=== PATIENT | female | born 1950 | race African-American/Black ===

== ENCOUNTER → 2016-11-12 | Outpatient (CLI) | payer BC ==
[2016-07-05 14:58] VITALS: BP 167/82
[~2016-11-12] MED LIST: AMLO10TA2 PO; DOXA4TAB3 PO; FURO40TA4 PO; GABA-586 PO; GLYB5TAB3 PO; METF500T4 PO; METO-269 PO; MONT10TA9 PO; OLME40TA PO; OMEP20CA9 PO; SIMV40TA3 PO; SITA100T PO
--- NOTE | 2016-11-13 09:30 | RAD ---
Left lower extremity venous Doppler ultrasound exam HISTORY: Left leg pain and swelling COMPARISON: Negative exam 09/24/2010 FINDINGS: Multiple grayscale and color images and spectral analysis waveform images were acquired of the left lower extremity veins to evaluate for the presence of DVT. Normal compression, color-flow, and augmentation is demonstrated from the left common femoral to the popliteal veins. There is normal phasicity. There is normal color flow of the proximal profunda femoris and greater saphenous veins. There is normal color flow in segments of calf veins. Impression: 1. There is no evidence of deep venous thrombosis from the left common femoral to popliteal veins.
== END | disposition home or self-care (01) ==
LOC: US 16:20
PROVIDERS: ATTEND Internal Medicine
DX: M79.605 Pain in left leg (principal)
CPT/HCPCS: 93971

== ENCOUNTER → 2017-01-11 | Outpatient (CLI) | payer MEDICARE ==
[2016-07-05 14:58] VITALS: BP 167/82
--- NOTE | 2017-01-11 11:39 | CARD ---
APPROVED REPORT EXAM: Two-dimensional and M-mode echocardiogram with Doppler and color Doppler. Other Information Quality : Average Rhythm : NSR INDICATION Cardiac Disease: CAD Surgery/Intervention CABG: Date: 03/2011 2D DIMENSIONS RVDd2.9 (2.9-3.5cm)Left Atrium(2D)3.9 (1.6-4.0cm) IVSd1.1 (0.7-1.1cm)Aortic Root(2D)2.8 (2.0-3.7cm) LVDd5.3 (3.9-5.9cm)LVOT Diameter2.2 (1.8-2.4cm) PWd1.1 (0.7-1.1cm)LVDs2.9 (2.5-4.0cm) FS (%) 34.6 %SV103.1 ml LVEF(%)65.5 (>50%) Aortic Valve AoV Peak Kali.141.8cm/sAoV VTI30.9cm AO Peak GR.8.0mmHgLVOT Peak Kali.102.7cm/s LVOT VTI 26.57cmAO Mean GR.4mmHg FAYE (VMAX)2.74mt1SII (VTI)3.27cm2 Mitral Valve MV E Zsvnkejs869.2cm/sMV DECEL JZJC217iu MV A Ouxiqtaw90.7cm/sMV E Mean Gr.2mmHg MV LLL25zcT/A Ratio1.5 MV A Bfllwtfc253ckDAA (PHT)3.66cm2 TDI E/Lateral E'8.2E/Medial E'20.7 Pulmonary Valve PV Peak Ekzhkcun01.3cm/sPV Peak Grad.3mmHg RVOT VTI20.6cm Tricuspid Valve TR P. Suwwgizk593xu/sRAP IAJFCPEG0hcYl TR Peak Gr.32vhRyWKMX98wkDl Pulmonary Vein S1 Oxgmtqek27.0cm/sD2 Jswadcch55.8cm/s LEFT VENTRICLE The left ventricle is normal size. There is normal left ventricular wall thickness. Left ventricle sy stolic function is normal. The Ejection Fraction is 60-65%. There is normal LV segmental wall motion. The left ventricular diastolic function and filling is normal for age. RIGHT VENTRICLE The right ventricle is normal size. The right ventricular systolic function is normal. ATRIA The left atrium size is normal. The right atrium size is normal. The interatrial septum is intact wit h no evidence for an atrial septal defect or patent foramen ovale as noted on 2-D or Doppler imaging. AORTIC VALVE The aortic valve is normal in structure and function. The aortic valve is trileaflet. Doppler and Col or Flow revealed no significant aortic regurgitation. There is no significant aortic valvular stenosi s. MITRAL VALVE The mitral valve is normal in structure and function. There is no mitral valve stenosis. Doppler and Color Flow revealed mild mitral regurgitation. TRICUSPID VALVE The tricuspid valve is normal in structure and function. Doppler and Color Flow revealed mild tricusp id regurgitation. The PA pressure was estimated at 38 mmHg. There is no tricuspid valve stenosis. PULMONIC VALVE The pulmonic valve is not well visualized. Doppler and Color Flow revealed trace pulmonic valvular re gurgitation. There is no pulmonic valvular stenosis. GREAT VESSELS The aortic root is normal in size. Normal pulmonary venous flow (Doppler). The IVC is normal in size and collapses >50% with inspiration. PERICARDIAL EFFUSION There is no evidence of significant pericardial effusion. Critical Notification Critical Value: No <Conclusion> The left ventricle is normal size. Left ventricle systolic function is normal. The Ejection Fraction is 60-65%. There is no significant aortic valvular stenosis. Doppler and Color Flow revealed no significant aortic regurgitation. Doppler and Color Flow revealed mild mitral regurgitation. Doppler and Color Flow revealed mild tricuspid regurgitation. The PA pressure was estimated at 38 mmHg.
== END | disposition home or self-care (01) ==
LOC: ECHO 07:09
PROVIDERS: ATTEND Internal Medicine Cardiovascular Disease
DX: I25.709 Atherosclerosis of coronary artery bypass graft(s), unspecified, with unspecified angina pectoris (principal); I10 Essential (primary) hypertension; Z87.448 Personal history of other diseases of urinary system; E11.9 Type 2 diabetes mellitus without complications; Z79.4 Long term (current) use of insulin
CPT/HCPCS: 93306

== ENCOUNTER → 2017-03-09 | Outpatient (CLI) | payer MEDICARE ==
[2016-07-05 14:58] VITALS: BP 167/82
--- NOTE | 2017-03-09 13:12 | RAD ---
DATE: 03/09/2017 EXAM: DIGITAL SCREEN BILAT W/CAD HISTORY: Routine screening COMPARISON: 12/18/2015 This study was interpreted with the benefit of Computerized Aided Detection (CAD). The breast parenchyma shows scattered fibroglandular densities. Breast parenchyma level B. FINDINGS: There is an unchanged smooth lymph node type density projected over the axillary tail region of the right breast. No new or enlarging breast densities are seen. Benign type calcifications are present. No suspicious microcalcifications have developed. IMPRESSION: Stable mammograms without evidence of malignancy. BI-RADS CATEGORY: 2 BENIGN FINDING(S) RECOMMENDED FOLLOW-UP: 12M 12 MONTH FOLLOW-UP PQRS compliance statement: Patient information was entered into a reminder system with a target due date for the next mammogram. Mammography is a sensitive method for finding small breast cancers, but it does not detect them all and is not a substitute for careful clinical examination. A negative mammogram does not negate a clinically suspicious finding and should not result in delay in biopsying a clinically suspicious abnormality. "Our facility is accredited by the [employer] Mammography Program."
== END | disposition home or self-care (01) ==
LOC: MAMMO 08:01
PROVIDERS: ATTEND Internal Medicine
DX: Z12.31 Encounter for screening mammogram for malignant neoplasm of breast (principal)
CPT/HCPCS: G0202; 77067

== ENCOUNTER → 2017-06-22 | Outpatient (CLI) | payer MEDICARE, MEDICAID ==
[2016-07-05 14:58] VITALS: BP 167/82
[~2017-06-22] MED LIST changes: -OLME40TA PO; +OLME40TA12 PO
--- NOTE | 2017-06-22 13:41 | KCIC ---
Examination: DEXA scan HISTORY: History of postmenopausal COMPARISON: None available FINDINGS: The bone mineral density in the lumbar spine is 1.429 g/sq cm with a T score of 3.5 and a Z score of 4.5. Bone mineral density in the left hip is 1.001 g/sq cm with a T score of 0.5 and a T score of 0.8 IMPRESSION: According to world congress diagnostic guidelines, the bone mineral density is normal. Electronically signed by: Denis Wheeler MD (06/22/2017 1:37 PM) [email or web address]
== END | disposition home or self-care (01) ==
LOC: KCIC DEXA 10:50
PROVIDERS: ATTEND Nurse Practitioner
DX: Z78.0 Asymptomatic menopausal state (principal)
CPT/HCPCS: 77080

== ENCOUNTER → 2017-12-27 | Day surgery (SDC) | payer MEDICARE, MEDICAID ==
[~2017-12-27] MED LIST changes: -AMLO10TA2 PO; -DOXA4TAB3 PO; -FURO40TA4 PO; -GABA-586 PO; -GLYB5TAB3 PO; +IV RINGERS,LACTATED 1000ML 1,000 ML IV; +LIDOCAINE 1% PF 2 ML VIAL. ID; -METF500T4 PO; -METO-269 PO; -MONT10TA9 PO; +MORPHINE SULFATE 4 MG/ML DISP.SYRIN. IV; -OLME40TA12 PO; -OMEP20CA9 PO; +ONDANSETRON PF 4 MG/2 ML VIAL. IV; +PROCHLORPERAZINE 10 MG/2 ML VIAL. IV; +PROPOFOL 40 ML IV; -SIMV40TA3 PO; -SITA100T PO; +fentaNYL PF VIAL 100 MCG/2 ML VIAL IV
[2017-12-27] MEDS: IV NORMAL SALINE 1000ML BAG 1,000 ML IV (09:01)
[2017-12-27 09:06] LABS: POC GLUCOSE 222 mg/dL (70-99)
== END | disposition home or self-care (01) ==
LOC: ENDOS 08:25
DX: D12.4 Benign neoplasm of descending colon (principal); E11.22 Type 2 diabetes mellitus with diabetic chronic kidney disease; I12.9 Hypertensive chronic kidney disease with stage 1 through stage 4 chronic kidney disease, or unspecified chronic kidney disease; N18.4 Chronic kidney disease, stage 4 (severe); I25.10 Atherosclerotic heart disease of native coronary artery without angina pectoris; K21.9 Gastro-esophageal reflux disease without esophagitis; E78.5 Hyperlipidemia, unspecified; E11.319 Type 2 diabetes mellitus with unspecified diabetic retinopathy without macular edema; E11.649 Type 2 diabetes mellitus with hypoglycemia without coma; Z90.49 Acquired absence of other specified parts of digestive tract; Z95.1 Presence of aortocoronary bypass graft; Z79.82 Long term (current) use of aspirin; Z79.899 Other long term (current) drug therapy; Z79.4 Long term (current) use of insulin
CPT/HCPCS: 45385; 82962; 88305; J2704

== ENCOUNTER → 2018-01-06 | Outpatient (CLI) | payer MEDICARE, MEDICAID | END | disposition home or self-care (01) | LOC: ECHO 07:35 | DX: I08.1 Rheumatic disorders of both mitral and tricuspid valves (principal); I25.709 Atherosclerosis of coronary artery bypass graft(s), unspecified, with unspecified angina pectoris | CPT/HCPCS: 93306 ==

== ENCOUNTER → 2019-01-03 | Outpatient (CLI) | payer MEDICARE ==
[2017-12-27 10:10] VITALS: BP 138/70
[~2019-01-03] MED LIST changes: +AMLO10TA8 PO; +ASPI-630 PO; +CETI10TA16 PO; +DOXA4TAB3 PO; +FERR325T14 PO; +FLUT9.9S NS; +FOLI0.8T21 PO; +FURO40TA4 PO; +GABA300C18 PO; +GLYB5TAB3 PO; +HYDR-2869 PO; +INSU100V13 SQ; -IV RINGERS,LACTATED 1000ML 1,000 ML IV; -LIDOCAINE 1% PF 2 ML VIAL. ID; +METF500T16 PO; +METO-269 PO; +MONT10TA9 PO; -MORPHINE SULFATE 4 MG/ML DISP.SYRIN. IV; +OLME40TA12 PO; +OMEP20CA10 PO; -ONDANSETRON PF 4 MG/2 ML VIAL. IV; -PROCHLORPERAZINE 10 MG/2 ML VIAL. IV; -PROPOFOL 40 ML IV; +SIMV40TA3 PO; +SITA100T PO; +SPIR25TA5 PO; -fentaNYL PF VIAL 100 MCG/2 ML VIAL IV
--- NOTE | 2019-01-05 09:56 | RAD ---
DATE: 01/03/2019 EXAM: MAMMO YOMAIRA SCREENING BILATERAL HISTORY: Routine screening COMPARISON: 03/09/2017 This study was interpreted with the benefit of Computerized Aided Detection (CAD). Breast Density: SCATTERED The breast parenchyma shows scattered fibroglandular densities. Breast parenchyma level B. FINDINGS: 2-D and 3-D tomosynthesis imaging was performed in CC and MLO projections. There are stable small smooth nodules in the lateral aspect of the right breast. There is a 11 mm nodule in the inferolateral aspect of the left breast which appears more prominent than on the previous study. There is a suggestion of a hilar lucency suggests that this is an intramammary lymph noted, as best seen on left CC tomosynthesis images #9. No other new or enlarging breast densities seen. Benign type calcifications are present. No suspicious microcalcifications have developed. IMPRESSION: Enlarging small left inferolateral breast nodule as described above. Sonographic evaluation is suggested. BI-RADS CATEGORY: 0 INCOMPLETE: NEEDS ADDITIONAL IMAGING EVALUATION AND/OR PRIOR MAMMOGRAMS FOR COMPARISON. RECOMMENDED FOLLOW-UP: ADD ADDITIONAL IMAGING PQRS compliance statement: Patient information was entered into a reminder system with a target due date for the next mammogram. Mammography is a sensitive method for finding small breast cancers, but it does not detect them all and is not a substitute for careful clinical examination. A negative mammogram does not negate a clinically suspicious finding and should not result in delay in biopsying a clinically suspicious abnormality. "Our facility is accredited by the [employer] Mammography Program."
== END | disposition home or self-care (01) ==
LOC: MAMMO 12:46
PROVIDERS: ATTEND Internal Medicine
DX: Z12.31 Encounter for screening mammogram for malignant neoplasm of breast (principal); N63.20 Unspecified lump in the left breast, unspecified quadrant; N63.10 Unspecified lump in the right breast, unspecified quadrant
CPT/HCPCS: 77063; 77067

== ENCOUNTER → 2019-01-10 | Outpatient (CLI) | payer MEDICARE ==
[2017-12-27 10:10] VITALS: BP 138/70
--- NOTE | 2019-01-10 16:21 | RAD ---
Examination: BREAST LEFT History: abnormal mammo Comparison/Correlation: 12/18/2015, 03/09/2017, 01/03/2019 screening mammographic exams Findings: Limited left breast ultrasound examination at the 3:00 region 12 cm from nipple was performed. There is a 1.3 cm x 1.2 cm x 0.5 cm tall well-circumscribed structure with a hyperechoic central component. This has appearance most compatible with a lymph node. Impression: BI-RADS Category 3-probably benign. A left breast structure most compatible with a lymph node is present. This finding is more evident on 01/03/2019 as compared to 03/09/2017. It is not seen on older prior mammographic exams. Six-month follow-up by mammography is recommended as result to assess stability. Ultrasound may be needed at that time. Electronically signed by: Shaheen Joseph MD (01/10/2019 4:18 PM) [facility] [place]
== END | disposition home or self-care (01) ==
LOC: US 14:08
PROVIDERS: ATTEND Internal Medicine
DX: R92.8 Other abnormal and inconclusive findings on diagnostic imaging of breast (principal)
CPT/HCPCS: 76641

== ENCOUNTER → 2019-02-09 | Outpatient (CLI) | payer MEDICARE ==
[2017-12-27 10:10] VITALS: BP 138/70
--- NOTE | 2019-02-09 14:03 | CARD ---
MR#: [id number] Date of Study: 02/09/2019 Ordering Physician: SALOME DALTON, Referring Physician: SALOME DALTON Tech: Nini Junior RDCS APPROVED REPORT EXAM: Two-dimensional and M-mode echocardiogram with Doppler and color Doppler. Other Information Quality : Technically LimitedHR: 55bpm Rhythm : BradycardiaTechnically limited study due to body habitus. INDICATION CAD 2D DIMENSIONS RVDd3.1 (2.9-3.5cm)Left Atrium(2D)3.5 (1.6-4.0cm) IVSd1.0 (0.7-1.1cm)Aortic Root(2D)3.2 (2.0-3.7cm) LVDd4.6 (3.9-5.9cm)LVOT Diameter2.2 (1.8-2.4cm) PWd1.0 (0.7-1.1cm)LVDs3.2 (2.5-4.0cm) FS (%) 31.5 %SV58.6 ml LVEF(%)59.4 (>50%) M-Mode DIMENSIONS Left Atrium(MM)4.06 (2.5-4.0cm)Aortic Root3.21 (2.2-3.7cm) Aortic Valve AoV Peak Kali.149.3cm/sAoV VTI32.2cm AO Peak GR.8.9mmHgLVOT Peak Kali.101.0cm/s AO Mean GR.5mmHgAVA (VMAX)2.65cm2 FAYE (VTI)2.60cm2 Mitral Valve MV E Wwylzccz589.1cm/sMV DECEL ISHQ694cc MV A Whfbqpej80.4cm/sE/A Ratio1.7 MV A Byqbhoru046gx Pulmonary Valve PV Peak Ldikzhro297.8cm/s Tricuspid Valve TR P. Ceqctjsc405en/sRAP KCPVSSRK9zvFv TR Peak Gr.87iiLzFUCW86taFh Pulmonary Vein S1 Ykgejrse37.9cm/sD2 Yejefwya79.9cm/s PVa lymzjysk06chzr LEFT VENTRICLE The left ventricle is normal size. There is normal left ventricular wall thickness. The left ventricu lar systolic function is normal. The Ejection Fraction is 60%. There is normal LV segmental wall ashlee on. Transmitral Doppler flow pattern is Grade II-pseudonormal filling dynamics. RIGHT VENTRICLE The right ventricle is normal size. There is normal right ventricular wall thickness. The right ventr icular systolic function is normal. ATRIA The left atrium size is normal. The right atrium size is normal. The interatrial septum is intact wit h no evidence for an atrial septal defect or patent foramen ovale as noted on 2-D or Doppler imaging. AORTIC VALVE The aortic valve is normal in structure and function. The aortic valve is trileaflet. Doppler and Col or Flow revealed no significant aortic regurgitation. There is no significant aortic valvular stenosi s. MITRAL VALVE The mitral valve is normal in structure and function. There is no evidence of mitral valve prolapse. There is no mitral valve stenosis. Doppler and Color-flow revealed mild mitral regurgitation. TRICUSPID VALVE The tricuspid valve is normal in structure and function. Doppler and Color Flow revealed trace tricus pid regurgitation. There is mild pulmonary hypertension. The PA pressure was estimated at 41 mmHg. Th ere is no tricuspid valve prolapse or vegetation. There is no tricuspid valve stenosis. PULMONIC VALVE The pulmonary valve is normal in structure and function. Doppler and Color Flow revealed trace to mil d pulmonic valvular regurgitation. There is no pulmonic valvular stenosis. GREAT VESSELS The aortic root is normal in size. The ascending aorta is normal in size. The IVC is normal in size a nd collapses >50% with inspiration. PERICARDIAL EFFUSION There is no evidence of significant pericardial effusion. Critical Notification Critical Value: No <Conclusion> The left ventricular systolic function is normal. The Ejection Fraction is 60%. There is normal LV segmental wall motion. Mild mitral regurgitation. Trace tricuspid regurgitation. The PA pressure was estimated at 41 mmHg. There is no evidence of significant pericardial effusion. Signed by : Salome Dalton, Electronically Approved : 02/09/2019 14:02:26
== END | disposition home or self-care (01) ==
LOC: ECHO 12:40
PROVIDERS: ATTEND Internal Medicine Cardiovascular Disease
DX: I08.8 Other rheumatic multiple valve diseases (principal); I27.20 Pulmonary hypertension, unspecified; R00.1 Bradycardia, unspecified; I25.709 Atherosclerosis of coronary artery bypass graft(s), unspecified, with unspecified angina pectoris
CPT/HCPCS: 93306

== ENCOUNTER → 2019-11-27 | Outpatient (CLI) | payer MEDICARE ==
[2017-12-27 10:10] VITALS: BP 138/70
[~2019-11-27] MED LIST changes: +MONT10TA49 PO; -MONT10TA9 PO; -OMEP20CA10 PO; +OMEP20CA16 PO; +SIMV40TA18 PO; -SIMV40TA3 PO
--- NOTE | 2019-11-27 10:44 | RAD ---
Indication: Six-month follow-up probably benign left breast nodule. She is due for screening. COMPARISON: Bilateral mammograms of 03/21/2008, 07/26/2013, 01/03/2019 and limited left breast ultrasound of 01/10/2019. TECHNIQUE: Bilateral CC and MLO views were obtained with 2-D and 3-D technique and reviewed with computer-aided detection. FINDINGS: Breasts are almost entirely fatty replaced. Middle third upper outer quadrant symmetric bilateral solitary circumscribed oval masses are present measuring approximately 1 cm in size and are consistent with benign intramammary lymph nodes that are not significantly changed over time allowing for variability in positioning between exams. No developing mass, architectural distortion or suspicious calcifications. IMPRESSION: Benign findings bilaterally. No evidence of malignancy. Recommend return to routine screening next due in one year. BI-RADS Category 2 Benign Patient entered into a reminder system with target due date for next mammogram. BI-RADS 2 -- benign findings
--- NOTE | 2019-11-27 15:56 | KCIC ---
Bone densitometry study: Date: 11/27/2019. Indication: Estrogen deficiency. Diabetes.. Procedure: DEXA study. Findings: The bone mineral density from L1 through L4 is 1.402 grams/cm squared with T-score 3.2. The bone mineral density in the left hip involving the neck of the left femur is 0.978 grams per cm squared with a T-score of 0.3. As compared with the baseline examination of 06/22/2017, bone mineral density in the lumbar spine has decreased from 1.436 g/sq cm, (T score 3.5), representing a 2.3 percent decrease in bone mineral density. Bone mineral density in the left hip has decreased from 1.001 g/sq cm, (T score 0.5) representing a 2.3 percent decrease in bone mineral density. Impression: Normal bone mineral density in the spine and left hip with slight interval decrease from 2017. Electronically signed by: Amol Brewer MD (11/27/2019 3:54 PM) [id number]
== END | disposition home or self-care (01) ==
LOC: KCIC DEXA 09:37
PROVIDERS: ATTEND Internal Medicine
DX: R92.8 Other abnormal and inconclusive findings on diagnostic imaging of breast (principal); E11.9 Type 2 diabetes mellitus without complications
CPT/HCPCS: 77066; 77080; G0279; 77062

== ENCOUNTER → 2020-04-15 | Outpatient (CLI) | payer MEDICARE ==
[2017-12-27 10:10] VITALS: BP 138/70
--- NOTE | 2020-04-15 13:40 | CARD ---
MR#: [id number] Date of Study: 04/15/2020 Ordering Physician: SALOME BERUMEN, Referring Physician: SALOME BERUMEN, Tech: Cici Hernandez RDCS APPROVED REPORT EXAM: Two-dimensional and M-mode echocardiogram with Doppler and color Doppler. Other Information Quality : Good INDICATION Cardiac Disease: CAD 2D DIMENSIONS RVDd3.4 (2.9-3.5cm)Left Atrium(2D)3.7 (1.6-4.0cm) IVSd1.0 (0.7-1.1cm)Aortic Root(2D)2.8 (2.0-3.7cm) LVDd5.6 (3.9-5.9cm)LVOT Diameter2.3 (1.8-2.4cm) PWd1.0 (0.7-1.1cm)LVDs2.7 (2.5-4.0cm) FS (%) 30.0 %SV126.2 ml LVEF(%)60.0 (>50%) Aortic Valve AoV Peak Kali.139.3cm/sAoV VTI34.8cm AO Peak GR.7.8mmHgLVOT Peak Kali.101.8cm/s LVOT VTI 26.68cmAO Mean GR.4mmHg FAYE (VMAX)3.75kb1BGV (VTI)3.31cm2 Mitral Valve MV E Xffffuog633.2cm/sMV DECEL ROGE033cx MV A Mgpbrjll39.0cm/sMV IPI87zh E/A Ratio1.3MVA (PHT)4.99cm2 TDI E/Lateral E'39.1E/Medial E'35.9 Tricuspid Valve TR P. Lmmrhbnw857ix/sRAP GGEHJXQX1cjYn TR Peak Gr.15bjOeTTEH51amGa Pulmonary Vein S1 Xbnxscla58.4cm/sD2 Gnpitpgq68.3cm/s LEFT VENTRICLE The left ventricle is normal size. There is normal left ventricular wall thickness. The left ventricu lar systolic function is normal. The Ejection Fraction is 55-60%. There is normal LV segmental wall m otion. RIGHT VENTRICLE The right ventricle is normal size. The right ventricular systolic function is normal. ATRIA The left atrium size is normal. The right atrium size is normal. The interatrial septum is intact wit h no evidence for an atrial septal defect or patent foramen ovale as noted on 2-D or Doppler imaging. AORTIC VALVE The aortic valve is calcified but opens well. Doppler and Color Flow revealed no significant aortic r egurgitation. There is no significant aortic valvular stenosis. MITRAL VALVE The mitral valve is calcified but opens well. Mitral annular calcification is mild. There is no evide nce of mitral valve prolapse. There is no mitral valve stenosis. Doppler and Color-flow revealed mild mitral regurgitation. TRICUSPID VALVE The tricuspid valve is normal in structure and function. Doppler and Color Flow revealed trace tricus pid regurgitation. There is mild pulmonary hypertension. The PA pressure was estimated at 33 mmHg. Th ere is no tricuspid valve stenosis. PULMONIC VALVE The pulmonic valve is not well visualized. Doppler and Color Flow revealed mild pulmonic valvular reg urgitation. There is no pulmonic valvular stenosis. GREAT VESSELS The aortic root is normal in size. The ascending aorta is normal in size. The IVC is normal in size a nd collapses >50% with inspiration. PERICARDIAL EFFUSION There is no evidence of significant pericardial effusion. Critical Notification Critical Value: No <Conclusion> The left ventricular systolic function is normal. The Ejection Fraction is 55-60%. There is normal LV segmental wall motion. Mild mitral regurgitation. Trace tricuspid regurgitation. The PA pressure was estimated at 33 mmHg. There is no evidence of significant pericardial effusion. Signed by : Salome Berumen, Electronically Approved : 04/15/2020 13:40:10
--- NOTE | 2020-04-16 11:27 | RAD ---
MR#: [id number] Date of Study: 04/15/2020 Ordering Physician: SALOME BERUMEN, Referring Physician: SALOME BERUMEN, Tech: Joel Anthony MBA, RDMS, RVT, RDCS, RTR APPROVED REPORT Patient Location: OUT-PATIENT Indications Uncontrolled HTN Renal Artery Doppler Right Renal Artery Left Renal Arter y Proximal 61.0/9.0 cm/secProximal 74.0/16.0 cm/sec Mid 77.0/16.0 cm/secMid 67.0/15.0 cm/sec Distal 126.0/18.0 cm/secDistal 66.0/15.0 cm/sec Renal/Aorta Ratio 1.06Renal/Aorta Ratio 0.62 Prox. Resistive Index 0.85Prox. Resistive Index 0.78 Mid Resistive Index 0.79Mid Resistive Index 0.78 Distal Resistive Index 0.86Distal Resistive Index 0.77 Rt. Segmental A. 50.0/11.0 cm/secLt. Segmental A. 59.0/14.0 cm/sec Renal Measurements RightLeft Kidney Kplpxj12.4 cm cmKidney Wyzzui60.3 cm cm Right Additional FindingsLeft Additional Findings Aortic Doppler VelocityWaveform Proximal Aorta 119.0 cm/sec Findings Grayscale images of the bilateral kidneys demonstrate renal cysts. The largest on the right side dacia sures approximately 2.2 cm and the largest on the left side measures approximately 4.5 cm. Spectral and color Doppler evaluation of the proximal, mid and distal renal arteries is grossly unrem arkable with normal velocities and no evidence of significant renal artery stenosis. Normal aortic v elocities are noted with mild diffuse aortic wall plaque noted. Critical Notification Critical Value: No <Conclusion> 1. No significant renal artery stenosis 2. Bilateral renal cysts, largest on the left measuring 4.5 cm. Consider full renal study in 6 m [facility] to ensure no significant changes. Signed by : Steven Gore, Electronically Approved : 04/16/2020 11:26:25
== END | disposition home or self-care (01) ==
LOC: ECHO 08:44
PROVIDERS: ATTEND Internal Medicine Cardiovascular Disease
DX: I08.8 Other rheumatic multiple valve diseases (principal); I25.709 Atherosclerosis of coronary artery bypass graft(s), unspecified, with unspecified angina pectoris; I10 Essential (primary) hypertension; I27.20 Pulmonary hypertension, unspecified; N28.1 Cyst of kidney, acquired
CPT/HCPCS: 76770; 93306

== ENCOUNTER → 2020-04-25 | Outpatient (CLI) | payer MEDICARE ==
[2017-12-27 10:10] VITALS: BP 138/70
[2020-04-25 13:38] LABS: HEMATOCRIT 29.2 % (36.0-47.0); HEMOGLOBIN 10.1 g/dL (12.0-15.5)
[2020-04-25 13:56] LABS: ALBUMIN 3.2 g/dL (3.4-5.0); CALCIUM 9.4 mg/dL (8.5-10.1); CREATININE 5.1 mg/dL (0.6-1.0); GFR 10.2; PHOSPHORUS 4.4 mg/dL (2.6-4.7); POTASSIUM 5.1 mmol/L (3.5-5.1)
[2020-04-25 14:05] LABS: CREATININE,RANDOM URINE 75.8 mg/dL (Not Establ.)
[2020-04-25 21:07] LABS: CALCIUM PTH 9.9 mg/dL (8.7-10.3); CREATININE PTH 4.94 mg/dL (0.57-1.00); PHOSPHORUS PTH 4.3 mg/dL (3.0-4.3); PTH INTACT 240 pg/mL (15-65)
[2020-04-25 22:09] LABS: CREAT RD UR 73.6 mg/dL (Not Estab.); MICROALB RD UR 1416.8 ug/mL (Not Estab.)
== END | disposition home or self-care (01) ==
LOC: LAB 12:56
PROVIDERS: ATTEND Internal Medicine Nephrology
DX: E83.52 Hypercalcemia (principal); N18.4 Chronic kidney disease, stage 4 (severe); D63.1 Anemia in chronic kidney disease; E83.41 Hypermagnesemia; R80.9 Proteinuria, unspecified
CPT/HCPCS: 36415; 80069; 82043; 82306; 82570; 83970; 84156; 85014; 85018

== ENCOUNTER 2020-04-28 17:56 | Emergency (ER) | payer MEDICARE ==
[~2020-04-28] VITALS: Ht 165.1 cm; Wt 104.5 kg
[2020-04-28 19:15] LABS: BASO % 1 % (0-3); EOS # 0.1 x10^3/uL (0.0-0.7); EOS % 2 % (0-3); HEMATOCRIT 31.4 % (36.0-47.0); HEMOGLOBIN 10.8 g/dL (12.0-15.5); LYMPH # 1.8 x10^3/uL (1.0-4.8); LYMPH % 27 % (24-48); MEAN CORPUSCULAR HEMOGLOBIN 32 pg (25-35); MEAN CORPUSCULAR HGB CONC 34 g/dL (31-37); MEAN CORPUSCULAR VOLUME 92 fL (79-100); MONO # 0.4 x10^3/uL (0.0-1.1); MONO % 6 % (0-9); NEUT # 4.5 x10^3/uL (1.8-7.7); NEUT % 66 % (31-73); PLATELET COUNT 229 x10^3/uL (140-400); RED BLOOD COUNT 3.41 x10^6/uL (3.50-5.40); RED CELL DISTRIBUTION WIDTH 14.3 % (11.5-14.5); WHITE BLOOD COUNT 6.8 x10^3/uL (4.0-11.0)
[2020-04-28 19:17] LABS: BILIRUBIN,URINE NEGATIVE (NEG); CLARITY,URINE CLEAR; COLOR,URINE YELLOW; NITRITE,URINE NEGATIVE (NEG); PH,URINE 6.5 (<5.0-8.0); PROTEIN,URINE >=300 mg/dL (NEG-TRACE); UROBILINOGEN,URINE 0.2 mg/dL (0.2 mg/dL)
[2020-04-28 19:26] LABS: CALCIUM 9.6 mg/dL (8.5-10.1); CREATININE 4.9 mg/dL (0.6-1.0); GFR 10.7; POTASSIUM 3.9 mmol/L (3.5-5.1)
[2020-04-28 19:31] LABS: ALBUMIN 3.5 g/dL (3.4-5.0); ALBUMIN/GLOBULIN RATIO 0.8 (1.0-1.7); MAGNESIUM 2.1 mg/dL (1.8-2.4); TOTAL BILIRUBIN 0.7 mg/dL (0.2-1.0); TOTAL PROTEIN 8.1 g/dL (6.4-8.2)
[2020-04-28 19:39] LABS: BACTERIA,URINE FEW /HPF (0-FEW); SQUAMOUS EPITHELIAL CELL,UR FEW /LPF
--- NOTE | 2020-04-28 19:52 | PHYS DOC ---
Past Medical History Past Medical History: Diabetes-Type II, High Cholesterol, Hypertension, Renal Disease, Other Additional Past Medical Histor: Seasonal Allergies. sickle cell trait Past Surgical History: Cholecystectomy, Coronary Bypass Surgery, Other Additional Past Surgical Histo: Bilateral cataracts,CABG x 4. Smoking Status: Never Smoker Alcohol Use: None Drug Use: None General Adult EDM: Chief Complaint: DIALYSIS PROBLEM HPI: HPI: Patient is a 69-year-old female with chronic kidney disease who presents tonight secondary to her creatinine being elevated. 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 She feels her normal self today. She denies any nausea or vomiting. She states she has been eating and drinking normally. She states she makes a lot of urine. She states they have discussed the idea of dialysis with her in the past. [] Review of Systems: Review of Systems: Constitutional: Denies fever or chills. [] Eyes: Denies change in visual acuity. [] HENT: Denies nasal congestion or sore throat. [] Respiratory: Denies cough or shortness of breath. [] Cardiovascular: Denies chest pain or edema. [] GI: Denies abdominal pain, nausea, vomiting, bloody stools or diarrhea. [] : Denies dysuria. [] Musculoskeletal: Denies back pain or joint pain. [] Integument: Denies rash. [] Neurologic: Denies headache, focal weakness or sensory changes. [] Endocrine: Denies polyuria or polydipsia. [] Lymphatic: Denies swollen glands. [] Psychiatric: Denies depression or anxiety. [] Heart Score: Risk Factors: Risk Factors: DM, Current or recent (<one month) smoker, HTN, HLP, family history of CAD, obesity. Risk Scores: Score 0 - 3: 2.5% MACE over next 6 weeks - Discharge Home Score 4 - 6: 20.3% MACE over next 6 weeks - Admit for Clinical Observation Score 7 - 10: 72.7% MACE over next 6 weeks - Early Invasive Strategies Allergies: Allergies: Allergies Coded Allergies Type Severity Reaction Last Updated Verified No Known Drug Allergies 12/27/17 No Physical Exam: PE: Constitutional: Well developed, well nourished, no acute distress, non-toxic appearance. [] HENT: Normocephalic, atraumatic, bilateral external ears normal, oropharynx moist, no oral exudates, nose normal. [] Eyes: PERRLA, EOMI, conjunctiva normal, no discharge. [] Neck: Normal range of motion, no tenderness, supple, no stridor. [] Cardiovascular:Heart rate regular rhythm, no murmur [] Lungs & Thorax: Bilateral breath sounds clear to auscultation [] Abdomen: Bowel sounds normal, soft, no tenderness, no masses, no pulsatile masses. [] Skin: Warm, dry, no erythema, no rash. [] Back: No tenderness, no CVA tenderness. [] Extremities: No tenderness, no cyanosis, no clubbing, ROM intact, no edema. [] Neurologic: Alert and oriented X 3, normal motor function, normal sensory function, no focal deficits noted. [] Psychologic: Affect normal, judgement normal, mood normal. [] Current Patient Data: Labs: Laboratory Tests Test 04/28/20 18:20 White Blood Count 6.8 x10^3/uL (4.0-11.0) Red Blood Count 3.41 x10^6/uL (3.50-5.40) L Hemoglobin 10.8 g/dL (12.0-15.5) L Hematocrit 31.4 % (36.0-47.0) L Mean Corpuscular Volume 92 fL (79-100) Mean Corpuscular Hemoglobin 32 pg (25-35) Mean Corpuscular Hemoglobin Concent 34 g/dL (31-37) Red Cell Distribution Width 14.3 % (11.5-14.5) Platelet Count 229 x10^3/uL (140-400) Neutrophils (%) (Auto) 66 % (31-73) Lymphocytes (%) (Auto) 27 % (24-48) Monocytes (%) (Auto) 6 % (0-9) Eosinophils (%) (Auto) 2 % (0-3) Basophils (%) (Auto) 1 % (0-3) Neutrophils # (Auto) 4.5 x10^3/uL (1.8-7.7) Lymphocytes # (Auto) 1.8 x10^3/uL (1.0-4.8) Monocytes # (Auto) 0.4 x10^3/uL (0.0-1.1) Eosinophils # (Auto) 0.1 x10^3/uL (0.0-0.7) Basophils # (Auto) 0.0 x10^3/uL (0.0-0.2) Urine Collection Type Unknown Urine Color Yellow Urine Clarity Clear Urine pH 6.5 (<5.0-8.0) Urine Specific [place] 1.010 (1.000-1.030) Urine Protein >=300 mg/dL (NEG-TRACE) Urine Glucose (UA) Negative mg/dL (NEG) Urine Ketones (Stick) Negative mg/dL (NEG) Urine Blood Negative (NEG) Urine Nitrite Negative (NEG) Urine Bilirubin Negative (NEG) Urine Urobilinogen Dipstick 0.2 mg/dL (0.2 mg/dL) Urine Leukocyte Esterase Negative (NEG) Urine RBC 1-2 /HPF (0-2) Urine WBC 5-10 /HPF (0-4) Urine Squamous Epithelial Cells Few /LPF Urine Bacteria Few /HPF (0-FEW) Sodium Level 137 mmol/L (136-145) Potassium Level 3.9 mmol/L (3.5-5.1) Chloride Level 100 mmol/L (98-107) Carbon Dioxide Level 27 mmol/L (21-32) Anion Gap 10 (6-14) Blood Urea Nitrogen 58 mg/dL (7-20) H Creatinine 4.9 mg/dL (0.6-1.0) H Estimated GFR (Cockcroft-Gault) 10.7 BUN/Creatinine Ratio 12 (6-20) Glucose Level 262 mg/dL (70-99) H Calcium Level 9.6 mg/dL (8.5-10.1) Magnesium Level 2.1 mg/dL (1.8-2.4) Total Bilirubin 0.7 mg/dL (0.2-1.0) Aspartate Amino Transferase (AST) 15 U/L (15-37) Alanine Aminotransferase (ALT) 20 U/L (14-59) Alkaline Phosphatase 96 U/L (46-116) Total Protein 8.1 g/dL (6.4-8.2) Albumin 3.5 g/dL (3.4-5.0) Albumin/Globulin Ratio 0.8 (1.0-1.7) L Laboratory Tests 04/28/20 18:20 Laboratory Tests 04/28/20 18:20 Vital Signs: Vital Signs Date Time Temp Pulse Resp B/P (MAP) Pulse Ox O2 Delivery O2 Flow Rate FiO2 04/28/20 18:11 98.8 92 18 175/70 (105) 100 Room Air 98.8 EKG: EKG: [EKG: Normal sinus rhythm rate of [address]-T changes] Radiology/Procedures: Radiology/Procedures: [] Course & Med Decision Making: Course & Med Decision Making Pertinent Labs and Imaging studies reviewed. (See chart for details) [ED course: Evaluation reveals a 69-year-old female with progressive kidney disease. She has a skein bleacher. She is asymptomatic today. Her creatinine is elevated but appears only slightly more so than usual. She is making urine. I think she is safe to follow with her skein bleacher as an outpatient.] I spoke with Dr. Garvin who agreed with the disposition. He states he will speak with Dr. Ambriz tomorrow and have her arrange for outpatient follow-up. Dragon Disclaimer: Dragon Disclaimer: This electronic medical record was generated, in whole or in part, using a voice recognition dictation system. Departure Departure Impression: Primary Impression: Acute on chronic renal failure Qualified Codes: N17.9 - Acute kidney failure, unspecified; N18.4 - Chronic kidney disease, stage 4 (severe) Disposition: 01 HOME, SELF-CARE Condition: STABLE Referrals: SANDRA MONTEMAYOR MD (PCP) MENDOZA AMBRIZ MD Follow-up with your skein bleacher this week for recheck. Patient Instructions: Chronic Renal Insufficiency Additional Instructions: Return to the emergency department with any new or concerning symptoms Justicifation of Admission Dx: Justifications for Admission: Justification of Admission Dx: JONAH Kelly DO Apr 28, 2020 19:52
[2020-04-28 19:55] VITALS: BP 199/89
--- NOTE | 2020-04-29 03:01 | EKG ---
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
== END 2020-04-28 20:34 | disposition home or self-care (01) ==
LOC: ER 17:56
DX: E11.22 Type 2 diabetes mellitus with diabetic chronic kidney disease (principal); I12.9 Hypertensive chronic kidney disease with stage 1 through stage 4 chronic kidney disease, or unspecified chronic kidney disease; N18.4 Chronic kidney disease, stage 4 (severe); N17.9 Acute kidney failure, unspecified; E78.00 Pure hypercholesterolemia, unspecified; Z90.49 Acquired absence of other specified parts of digestive tract; Z95.1 Presence of aortocoronary bypass graft
CPT/HCPCS: 36415; 80053; 81001; 83735; 85025; 87086; 93005; 99284

== ENCOUNTER → 2020-05-05 | Outpatient (CLI) | payer MEDICARE ==
[2020-04-28 19:55] VITALS: BP 199/89
[~2020-05-05] MED LIST changes: +CHOL500051 PO; +METO-247 PO
[2020-05-05 11:31] LABS: CALCIUM 9.4 mg/dL (8.5-10.1); CREATININE 5.5 mg/dL (0.6-1.0); GFR 9.3; POTASSIUM 4.1 mmol/L (3.5-5.1)
== END | disposition home or self-care (01) ==
LOC: LAB 10:45
PROVIDERS: ATTEND Internal Medicine Nephrology
DX: N17.9 Acute kidney failure, unspecified (principal); E11.29 Type 2 diabetes mellitus with other diabetic kidney complication; E83.41 Hypermagnesemia; R53.83 Other fatigue; Z68.37 Body mass index [BMI] 37.0-37.9, adult
CPT/HCPCS: 36415; 80048; 86704; 86706; 86803; 87340

== ENCOUNTER → 2020-05-07 | Outpatient (CLI) | payer MEDICARE ==
[2020-04-28 19:55] VITALS: BP 199/89
--- NOTE | 2020-05-07 12:31 | RAD ---
CHEST AP ONLY 05/07/2020 12:00 AM INDICATION: CJD stage IV COMPARISON: None available TECHNIQUE: Portable frontal view of the chest is provided. FINDINGS: The cardiomediastinal silhouette is within normal limits. Lungs are clear. There are no significant pleural effusions. There is no pulmonary vascular congestion. No pneumothorax. Median sternotomy changes are present. No suspicious osseous abnormality. IMPRESSION: There is no acute cardiopulmonary process. Electronically signed by: Sanjuana Bustos MD (05/07/2020 12:28 PM) [id number]
== END | disposition home or self-care (01) ==
LOC: RAD 11:11
PROVIDERS: ATTEND Internal Medicine Nephrology
DX: N18.4 Chronic kidney disease, stage 4 (severe) (principal)
CPT/HCPCS: 71045

== ENCOUNTER 2020-05-09 08:25 | Outpatient (CLI) | payer MEDICARE ==
[2020-05-09] VITALS (8 sets, daily range): BP systolic 118–161; BP diastolic 57–72
[~2020-05-09] VITALS: Ht 165.1 cm; Wt 105.2 kg
[~2020-05-09 08:25] MED LIST changes: -CHOL500051 PO; -METO-247 PO
[2020-05-09 08:56] LABS: BASO # 0.1 x10^3/uL (0.0-0.2); BASO % 1 % (0-3); EOS # 0.2 x10^3/uL (0.0-0.7); EOS % 3 % (0-3); HEMATOCRIT 30.1 % (36.0-47.0); HEMOGLOBIN 10.2 g/dL (12.0-15.5); LYMPH # 1.6 x10^3/uL (1.0-4.8); LYMPH % 23 % (24-48); MEAN CORPUSCULAR HEMOGLOBIN 31 pg (25-35); MEAN CORPUSCULAR HGB CONC 34 g/dL (31-37); MEAN CORPUSCULAR VOLUME 92 fL (79-100); MONO # 0.4 x10^3/uL (0.0-1.1); MONO % 6 % (0-9); NEUT % 68 % (31-73); PLATELET COUNT 241 x10^3/uL (140-400); RED BLOOD COUNT 3.29 x10^6/uL (3.50-5.40); WHITE BLOOD COUNT 7.3 x10^3/uL (4.0-11.0)
[2020-05-09 09:04] LABS: PROTHROMBIN TIME PATIENT 11.2 SEC (11.7-14.0)
[2020-05-09] MEDS ORDERED: INSU100V13 SQ (09:06)
[2020-05-09] MEDS ORDERED: METO-247 PO (09:06)
[2020-05-09] MEDS ORDERED: CHOL500051 PO (09:06)
[2020-05-09] MEDS ORDERED: LIDOCAINE 1%/EPI 1:100,000 20 ML VIAL. ONE (09:33)
[2020-05-09] MEDS ORDERED: fentaNYL PF VIAL 100 MCG/2 ML VIAL IV ONE (10:00)
[2020-05-09] MEDS ORDERED: MIDAZOLAM HCL/PF 2 MG/2 ML VIAL. IV ONE (10:00)
[2020-05-09] MEDS ORDERED: LIDOCAINE 1%/EPI 1:100,000 20 ML VIAL. SQ ONE (10:00)
[2020-05-09] MEDS ORDERED: MIDAZOLAM HCL/PF 2 MG/2 ML VIAL. ONE (10:04)
[2020-05-09] MEDS ORDERED: fentaNYL PF VIAL 100 MCG/2 ML VIAL ONE (10:04)
--- NOTE | 2020-05-09 11:05 | PDOC ---
MODERATE SEDATION ASSESSMENT RISKS/ALTERNATIVES Risks/Alternatives Risks and alternatives of this type of sedation and procedure discussed with: RISK/ALTERNATIVES: Patient H & P ON CHART H & P H & P on chart and reviewed for co-morbid conditions and appropriate labs. H&P ON CHART: Yes STATUS PREG STATUS ASSESSED: Yes MEDS/ALLERGIES REVIEWED Meds/Allergies Reviewed Medications and Allergies including time and route of recently administered narcotics and sedatives. MEDS/ALLERGIES REVIEWED: Yes ASA RATING ASA RATING: II AIRWAY ASSESSMENT Airway Assessment Airway patency, oral function limitations, presence of caps, crowns, dentures, partials, and ability to extend neck assessed. AIRWAY ASSESSMENT: Yes MALLAMPATI SCORE MALLAMPATI SCORE: II PRE-SEDATION ASSESSMENT PRE-SEDATION ASSESSMENT: Yes ELIZABETH SUE MD May 09, 2020 11:05
--- NOTE | 2020-05-09 11:05 | PDOC ---
BRIEF OPERATIVE NOTE Pre-Op Diagnosis CRF Post-Op Diagnosis same Procedure Performed Tunnelled HD Catheter Surgeon Fab Anesthesia Type: Conscious Sedation Findings 23cm Palindrome with excellent manual flows Complications no immediate ELIZABETH SUE MD May 09, 2020 11:05
--- NOTE | 2020-05-09 13:06 | NUR ---
Discharge Note: MESHA GARCIA Discharge instructions and discharge home medications reviewed with Patient and daughter; and a copy given. All questions have been answered and understanding verbalized. The following instructions and handouts were given: Dialysis diet, Central line placement, Post moderate sedation. Discontinued lines and drains: Right wrist IV site dc'd and tip intact. Patient discharged to home with daughter via personal vehicle.
--- NOTE | 2020-05-09 14:02 | RAD ---
Procedure: Tunneled hemodialysis catheter placement Clinical Indication: Adult female with chronic renal failure requiring hemodialysis Sedation: Conscious sedation was administered for 23 minutes. The patient was monitored by a qualified independent observer throughout the time of sedation. Please refer to the medical record for exact doses of medications utilized to achieve moderate sedation. Antibiotics: Antibiotic was administered intravenously within 1 hour of the procedure start time. Fluoro Time: 0.2 minutes, images: 1 Contrast: None Sterility: All elements of maximal sterile barrier technique including the use of a cap, mask, sterile gown, sterile gloves, large sterile sheet, appropriate hand hygiene, and 2% chlorhexidine for cutaneous antisepsis (or acceptable alternative antiseptic per current guidelines) were followed for this procedure. Consent: The procedure was explained in its entirety to the patient or the patients designated public relations representative by a member of the treatment team, including a discussion of the risks, benefits and commonly accepted alternatives to the procedure, as well as the expected consequences of no therapy whatsoever. Discussion of the risks included, but was not limited to, those that are most frequent and those that are rare but possibly severe or life-threatening, as well as the possibility of unforeseen complications. Technique and Findings: Following informed consent, the patient was prepped and draped in the usual sterile fashion. Ultrasound interrogation of the right neck revealed patency and compressibility of the right internal jugular vein. A 21-gauge micropuncture was then used to gain access to this vein under ultrasound guidance. A hard copy ultrasound image was recorded. The needle was exchanged over a wire for a 4 [place] sheath which was used to guide an Amplatz wire into the IVC. The skin over the right anterior chest wall was copiously anesthetized with 1% Lidocaine plus Epinephrine and a small dermatotomy was made. A 23 cm palindrome tunneled hemodialysis catheter was then tunneled subcutaneously towards the neck dermatotomy and deployed through a large caliber peel-away sheath under fluoroscopic guidance such that the distal tip resided in the mid right atrium. Manual flow rates were assessed and found to be excellent. The catheter was then flushed, packed with Heparin, capped, and sutured to the skin. The neck dermatotomy was closed with Dermabond. Complications: No immediate Impression: 1. Tunneled hemodialysis catheter placement as described. This catheter demonstrates excellent manual flow rates and is suitable for use immediately.
== END 2020-05-09 13:10 | disposition home or self-care (01) ==
LOC: INTRAD 08:25
PROVIDERS: ATTEND Internal Medicine Nephrology
DX: I12.0 Hypertensive chronic kidney disease with stage 5 chronic kidney disease or end stage renal disease (principal); E11.22 Type 2 diabetes mellitus with diabetic chronic kidney disease; N18.6 End stage renal disease; Z79.84 Long term (current) use of oral hypoglycemic drugs; Z79.899 Other long term (current) drug therapy
CPT/HCPCS: 36415; 36558; 76937; 77001; 85025; 85610; 99152; 99153; C1750; C1769; C1892; J0690; J2250; J3010; J3490

== ENCOUNTER 2020-10-09 10:14 | Day surgery (SDC) | payer MEDICARE ==
--- NOTE | 2020-10-08 16:14 | PREOP HP ---
DATE OF SERVICE: 10/09/2020 CHIEF COMPLAINT AND HISTORY OF PRESENT ILLNESS: This patient is a 69-year-old female who is a 4, para 4, all have been full-term normal deliveries and she has had menopause at the age of 59. She is a patient of Dr. Dang Basilio and also she is waiting for a kidney transplant in future. She does have high blood pressure, diabetes, and a quadruple bypass surgery she has had in 2010. She is not on any big medications at this time except for insulin for diabetes and also she is on dialysis. She did have a Pap smear, which shows endometrial cells in the reading and the patient is scheduled at this time for a diagnostic D and C. ALLERGIES: None known. PAST MEDICAL HISTORY: Reveals she has had a gallbladder, cataract, as well as quadruple bypass surgery before. FAMILY HISTORY: She does have a family history, 2 brothers and 2 sisters. REVIEW OF SYSTEMS: Essentially as mentioned above. PHYSICAL EXAMINATION: VITAL SIGNS: Reveals she weighs about 230 pounds at this time. Blood pressure of 130/90. Vital signs stable. GENERAL: The patient is quite obese. She is walking with a cane at this time. ABDOMEN: Feels soft. PELVIC: Shows external genitalia being normal. Cervical os is closed. Uterus feels normal size, no adnexal masses are palpable. No vaginal bleeding noted at this time. Pap smear was done, which shows endometrial cells. IMPRESSION: Obesity, hypertension with diabetes, kidney dialysis patient, candidate for kidney transplant, postmenopausal syndrome. PLAN: Diagnostic D and C. RONNIE LANDRUM MD DR: TRUE/gigi JOB#: [id number] / [id number]
[~2020-10-09] VITALS: Ht 165.1 cm; Wt 103.9 kg
[~2020-10-09 10:14] MED LIST changes: +AMLO-187 PO; -AMLO10TA8 PO; +CHOL500051 PO; +DEXAMETHASONE SOD PHOS 4 MG/ML VIAL ONE; +HYDROmorphone 2 MG/ML VIAL IV PRN; +IV RINGERS,LACTATED 1000ML 1,000 ML IV SCH; +LIDOCAINE 1% PF 2 ML VIAL. ID PRN; +LIDOCAINE 2% PF 5 ML VIAL. ONE; +METO-247 PO; +MORPHINE SULFATE 2 MG/ML VIAL. IV PRN; +ONDANSETRON PF 4 MG/2 ML VIAL. IV PRN; +ONDANSETRON PF 4 MG/2 ML VIAL. ONE; +OXYTOCIN 10 UNIT/ML VIAL. ONE; +PROCHLORPERAZINE 10 MG/2 ML VIAL. IV PRN; +PROPOFOL 10 MG/ML (20ML) VIAL. IV ONE; +VIT1CAPS7 PO; +fentaNYL PF VIAL 100 MCG/2 ML VIAL IV PRN; +miSOPROStol 200 MCG TABLET. ONE
[2020-10-09] MEDS ORDERED: INSULIN LISPRO 100 UNIT/ML 3ML VIAL for OP,RR ONLY. SQ PRN (10:30)
[2020-10-09] MEDS ORDERED: IV NORMAL SALINE 1000ML BAG 1,000 ML IV ONE (11:15)
[2020-10-09] MEDS ORDERED: fentaNYL PF VIAL 100 MCG/2 ML VIAL ONE (11:22)
[2020-10-09 11:39] LABS: BASO # 0.1 x10^3/uL (0.0-0.2); BASO % 2 % (0-3); EOS # 0.1 x10^3/uL (0.0-0.7); EOS % 2 % (0-3); HEMATOCRIT 27.5 % (36.0-47.0); HEMOGLOBIN 9.2 g/dL (12.0-15.5); LYMPH # 1.3 x10^3/uL (1.0-4.8); LYMPH % 25 % (24-48); MEAN CORPUSCULAR HEMOGLOBIN 32 pg (25-35); MEAN CORPUSCULAR HGB CONC 34 g/dL (31-37); MEAN CORPUSCULAR VOLUME 95 fL (79-100); MONO # 0.4 x10^3/uL (0.0-1.1); MONO % 7 % (0-9); NEUT # 3.4 x10^3/uL (1.8-7.7); NEUT % 65 % (31-73); PLATELET COUNT 207 x10^3/uL (140-400); RED CELL DISTRIBUTION WIDTH 15.5 % (11.5-14.5); WHITE BLOOD COUNT 5.2 x10^3/uL (4.0-11.0)
[2020-10-09 11:44] LABS: CREATININE 4.7 mg/dL (0.6-1.0); GFR 11.2; POTASSIUM 3.8 mmol/L (3.5-5.1)
[2020-10-09] MEDS ORDERED: ONDANSETRON PF 4 MG/2 ML VIAL. ONE (12:22)
[2020-10-09] MEDS ORDERED: FAMOTIDINE 20 MG/2 ML VIAL ONE (12:22)
[2020-10-09] MEDS ORDERED: GLYCOPYRROLATE 1 MG/5 ML VIAL. ONE (12:22)
[2020-10-09] MEDS ORDERED: SEVOFLURANE 31 TO 60 MINUTES. IH ONE (12:49)
--- NOTE | 2020-10-09 12:55 | PDOC ---
GENERAL General: 69yrs old lady has Abnormal Pap Smear with Endometrial Cells. VITAL SIGNS Vital Signs/I&O: Vital Signs Date Time Temp Pulse Resp B/P (MAP) Pulse Ox O2 Delivery O2 Flow Rate FiO2 10/09/20 10:52 97.8 71 20 92 97.8 10/09/20 10:48 164/71 Room Air ALLERGIES Allergies: Allergies Coded Allergies Type Severity Reaction Last Updated Verified No Known Drug Allergies 10/09/20 No MEDS Medications: Current Medications Medications (Trade) Dose Ordered Sig/Flora Route PRN Reason Start Time Stop Time Status Last Admin Dose Admin Cefazolin Sodium/ Dextrose 50 ml @ 100 mls/hr 1X PREOP PRN IV PRIOR TO PROCEDURE 10/09/20 06:00 10/09/20 18:00 10/09/20 12:15 Sodium Chloride 1,000 ml @ 0 mls/hr 1X ONCE IV 10/09/20 11:15 10/09/20 11:16 DC 10/09/20 11:04 LAB Lab: Laboratory Tests Test 10/09/20 10:30 10/09/20 10:59 10/09/20 11:25 SARS-CoV-2 Antigen (Rapid) Negative (NEGATIVE) Glucose (Fingerstick) 121 mg/dL (70-99) H White Blood Count 5.2 x10^3/uL (4.0-11.0) Red Blood Count 2.90 x10^6/uL (3.50-5.40) L Hemoglobin 9.2 g/dL (12.0-15.5) L Hematocrit 27.5 % (36.0-47.0) L Mean Corpuscular Volume 95 fL (79-100) Mean Corpuscular Hemoglobin 32 pg (25-35) Mean Corpuscular Hemoglobin Concent 34 g/dL (31-37) Red Cell Distribution Width 15.5 % (11.5-14.5) H Platelet Count 207 x10^3/uL (140-400) Neutrophils (%) (Auto) 65 % (31-73) Lymphocytes (%) (Auto) 25 % (24-48) Monocytes (%) (Auto) 7 % (0-9) Eosinophils (%) (Auto) 2 % (0-3) Basophils (%) (Auto) 2 % (0-3) Neutrophils # (Auto) 3.4 x10^3/uL (1.8-7.7) Lymphocytes # (Auto) 1.3 x10^3/uL (1.0-4.8) Monocytes # (Auto) 0.4 x10^3/uL (0.0-1.1) Eosinophils # (Auto) 0.1 x10^3/uL (0.0-0.7) Basophils # (Auto) 0.1 x10^3/uL (0.0-0.2) Sodium Level 142 mmol/L (136-145) Potassium Level 3.8 mmol/L (3.5-5.1) Chloride Level 102 mmol/L (98-107) Carbon Dioxide Level 31 mmol/L (21-32) Anion Gap 9 (6-14) Blood Urea Nitrogen 26 mg/dL (7-20) H Creatinine 4.7 mg/dL (0.6-1.0) H Estimated GFR (Cockcroft-Gault) 11.2 Glucose Level 122 mg/dL (70-99) H Calcium Level 10.0 mg/dL (8.5-10.1) Laboratory Tests 10/09/20 11:25 Laboratory Tests 10/09/20 11:25 ASSESSMENT & PLAN A&P Under [facility] done to rule out Cancer of Uterus. EBL 5cc. Justifications for Admission Other Justification RONNIE LANDRUM MD Oct 09, 2020 12:55
[2020-10-09] MEDS ORDERED: ACETAMINOPHEN 500 MG TABLET PO ONE (13:15)
[2020-10-09 13:42] VITALS: BP 129/59
--- NOTE | 2020-10-09 14:06 | OP ---
DATE OF SURGERY: PREOPERATIVE DIAGNOSIS: Abnormal Pap smear. POSTOPERATIVE DIAGNOSIS: Abnormal Pap smear. OPERATION PERFORMED: Diagnostic D and C. DESCRIPTION OF PROCEDURE: The patient was taken to the operating room under general anesthesia. She was placed in a dorsal lithotomy position. Perineum was prepped and draped in the usual manner. Weighted speculum inserted in posterior vaginal wall. Anterior lip of the cervix held with a tenaculum. Cervix was dilated first and a medium-sized curette was used to curette the endometrial cavity. All the curettings obtained were subjected for pathological examination. At the end of the curettage, speculum tenaculum is removed. The patient was sent to the recovery room in good condition. She did receive antibiotics prior to surgery. ESTIMATED BLOOD LOSS: 5 mL. Postoperative condition is good. She will be followed in the office in 2 weeks for further postoperative care and treatment. RONNIE LANDRUM MD DR: TRUE/gigi JOB#: [id number] / [id number]
== END 2020-10-09 14:17 | disposition home or self-care (01) ==
LOC: SURG 10:14
PROVIDERS: ATTEND Obstetrics & Gynecology
DX: R89.6 Abnormal cytological findings in specimens from other organs, systems and tissues (principal); E78.00 Pure hypercholesterolemia, unspecified; K21.9 Gastro-esophageal reflux disease without esophagitis; E66.9 Obesity, unspecified; I12.0 Hypertensive chronic kidney disease with stage 5 chronic kidney disease or end stage renal disease; E11.22 Type 2 diabetes mellitus with diabetic chronic kidney disease; N18.6 End stage renal disease; M19.90 Unspecified osteoarthritis, unspecified site; Z99.2 Dependence on renal dialysis; Z20.828 Contact with and (suspected) exposure to other viral communicable diseases; Z90.49 Acquired absence of other specified parts of digestive tract; Z98.890 Other specified postprocedural states; Z79.899 Other long term (current) drug therapy; Z79.82 Long term (current) use of aspirin; Z79.4 Long term (current) use of insulin; Z72.89 Other problems related to lifestyle
CPT/HCPCS: 58120; 80048; 82962; 85025; 87426; C9803; J0690; J1100; J2405; J2704; J3010; J3490; U0003; J2590

== ENCOUNTER 2020-12-11 07:12 | Emergency (ER) | payer MEDICARE, MEDICAID ==
[~2020-12-11] VITALS: Ht 165.1 cm; Wt 104.5 kg
[~2020-12-11 07:12] MED LIST changes: -DEXAMETHASONE SOD PHOS 4 MG/ML VIAL ONE; -HYDROmorphone 2 MG/ML VIAL IV PRN; -IV RINGERS,LACTATED 1000ML 1,000 ML IV SCH; -LIDOCAINE 1% PF 2 ML VIAL. ID PRN; -LIDOCAINE 2% PF 5 ML VIAL. ONE; -MORPHINE SULFATE 2 MG/ML VIAL. IV PRN; -ONDANSETRON PF 4 MG/2 ML VIAL. IV PRN; -ONDANSETRON PF 4 MG/2 ML VIAL. ONE; -OXYTOCIN 10 UNIT/ML VIAL. ONE; -PROCHLORPERAZINE 10 MG/2 ML VIAL. IV PRN; -PROPOFOL 10 MG/ML (20ML) VIAL. IV ONE; -fentaNYL PF VIAL 100 MCG/2 ML VIAL IV PRN; -miSOPROStol 200 MCG TABLET. ONE
--- NOTE | 2020-12-11 09:25 | RAD ---
Exam Date: 12/11/2020 8:55 AM XR CHEST 1V Indication: Reason: temporary dialysis catheter fell out last night, SOA / Spl. Instructions: / Hist ory: Comparison: May 07, 2020 FINDINGS/ IMPRESSION: The aorta is calcified. Postoperative changes are again seen. The cardiac silhouette is enlarged without significant congestion. There are slightly prominent roberta ngs in the left mid and lower lung perez suspicious for early infiltrate, atelectasis, or edema. No appreciable pleural effusion or pneumothorax. Electronically signed by: Sean Osullivan MD (12/11/2020 9:22 AM) [id number]
--- NOTE | 2020-12-11 09:31 | PHYS DOC ---
Past Medical History Past Medical History: Diabetes-Type II, High Cholesterol, Hypertension, Renal Disease, Sickle Cell Disease, Other Additional Past Medical Histor: Seasonal Allergies Past Surgical History: Cholecystectomy, Coronary Bypass Surgery, Other Additional Past Surgical Histo: Bilateral cataracts,CABG x 4, Dialysis Cath RT chest Smoking Status: Never Smoker Alcohol Use: None Drug Use: None General Adult EDM: Chief Complaint: OTHER COMPLAINTS HPI: HPI: Patient is a 70 year old female who came to ER today for evaluation because she woke up this morning her temporary dialysis catheter fell off. Patient did not know why. Patient has history of end-stage renal failure, on hemodialysis. Her last hemodialysis was yesterday. She has an AV fistula on her right arm but is not ready to be used yet. Patient denies any chest pain, no trouble breathing. Patient denies any abdominal pain, no nausea vomiting, no cough, no fever. Review of Systems: Review of Systems: Constitutional: Denies fever or chills. [] Eyes: Denies change in visual acuity. [] HENT: Denies nasal congestion or sore throat. [] Respiratory: Denies cough or shortness of breath. [] Cardiovascular: Denies chest pain or edema. [] GI: Denies abdominal pain, nausea, vomiting, bloody stools or diarrhea. [] : Denies dysuria. [] Musculoskeletal: Denies back pain or joint pain. [] Integument: Denies rash. [] Neurologic: Denies headache, focal weakness or sensory changes. [] Endocrine: Denies polyuria or polydipsia. [] Lymphatic: Denies swollen glands. [] Psychiatric: Denies depression or anxiety. [] Heart Score: C/O Chest Pain: N/A Risk Factors: Risk Factors: DM, Current or recent (<one month) smoker, HTN, HLP, family history of CAD, obesity. Risk Scores: Score 0 - 3: 2.5% MACE over next 6 weeks - Discharge Home Score 4 - 6: 20.3% MACE over next 6 weeks - Admit for Clinical Observation Score 7 - 10: 72.7% MACE over next 6 weeks - Early Invasive Strategies Allergies: Allergies: Allergies Coded Allergies Type Severity Reaction Last Updated Verified No Known Drug Allergies 10/09/20 No Physical Exam: PE: Constitutional: Well developed, well nourished, no acute distress, non-toxic appearance. [] HENT: Normocephalic, atraumatic, bilateral external ears normal, oropharynx chel st, no oral exudates, nose normal. [] Eyes: PERRLA, EOMI, conjunctiva normal, no discharge. [] Neck: Normal range of motion, no tenderness, supple, no stridor. [] Cardiovascular:Heart rate regular rhythm, no murmur [] Lungs & Thorax: Bilateral breath sounds clear to auscultation [] Abdomen: Bowel sounds normal, soft, no tenderness, no masses, no pulsatile masses. [] Skin: Warm, dry, no erythema, no rash. [] Back: No tenderness, no CVA tenderness. [] Extremities: No tenderness, no cyanosis, no clubbing, ROM intact, no edema. [] Neurologic: Alert and oriented X 3, normal motor function, normal sensory function, no focal deficits noted. [] Psychologic: Affect normal, judgement normal, mood normal. [] Current Patient Data: Vital Signs: Vital Signs Date Time Temp Pulse Resp B/P (MAP) Pulse Ox O2 Delivery O2 Flow Rate FiO2 12/11/20 07:15 98.2 82 20 175/77 (109) 93 Room Air 98.2 EKG: EKG: [] Radiology/Procedures: Radiology/Procedures: [][facility] [address] [place] [address] IMAGING REPORT Signed PATIENT: MESHA GARCIA ACCOUNT: [id number] : 1950 LOCATION: ER AGE: 70 SEX: F EXAM STATUS: REG ER ORD. PHYSICIAN: ISI CHOWDHURY DO REASON: temporary dialysis catheter fell out last night, SOA PROCEDURE: CHEST AP ONLY Exam Date: 12/11/2020 8:55 AM XR CHEST 1V Indication: Reason: temporary dialysis catheter fell out last night, SOA / Spl. Instructions: / History: Comparison: May 07, 2020 FINDINGS/ IMPRESSION: The aorta is calcified. Postoperative changes are again seen. The cardiac silhouette is enlarged without significant congestion. There are slightly prominent markings in the left mid and lower lung perez suspicious for early infiltrate, atelectasis, or edema. No appreciable pleural effusion or pneumothorax. Electronically signed by: Ildefonso Osullivan MD (12/11/2020 9:22 AM) [id number] DICTATED and SIGNED BY: ILDEFONSO OSULLIVAN MD DATE: 12/11/20 [id number] Course & Med Decision Making: Course & Med Decision Making Pertinent Labs and Imaging studies reviewed. (See chart for details) Discussed with the interventional radiologist for the placement of the Idris catheter for patient, patient would like to go home, and come back tomorrow for outpatient procedure. She is scheduled for tomorrow in outpatient radiology department at 7 AM for Idris catheter placement. Dragon Disclaimer: Dragon Disclaimer: This electronic medical record was generated, in whole or in part, using a voice recognition dictation system. Departure Departure Impression: Primary Impression: Encounter for dialysis catheter care Disposition: 01 DC HOME SELF CARE/HOMELESS Condition: STABLE Referrals: SANDRA MONTEMAYOR MD (PCP) Additional Instructions: Your temporary dialysis catheter fell off last night, you are scheduled for a replacement tomorrow morning, please show up at the outpatient radiology procedure at 7 AM. ISI CHOWDHURY DO Dec 11, 2020 09:31
[2020-12-11 09:45] VITALS: BP 166/71
== END 2020-12-11 09:50 | disposition home or self-care (01) ==
LOC: ER 07:12
DX: Z49.01 Encounter for fitting and adjustment of extracorporeal dialysis catheter (principal); E78.00 Pure hypercholesterolemia, unspecified; I10 Essential (primary) hypertension; Z95.1 Presence of aortocoronary bypass graft; E11.22 Type 2 diabetes mellitus with diabetic chronic kidney disease; I12.0 Hypertensive chronic kidney disease with stage 5 chronic kidney disease or end stage renal disease; N18.6 End stage renal disease
CPT/HCPCS: 71045; 99285-25

== ENCOUNTER → 2021-01-13 | Outpatient (CLI) | payer MEDICARE, MEDICAID ==
--- NOTE | 2021-01-16 19:14 | RAD ---
DATE: 01/13/2021 EXAM: MAMMO YOMAIRA SCREENING BILATERAL HISTORY: Screening COMPARISON: Multiple exams dating back to 12/18/2015 This study was interpreted with the benefit of Computerized Aided Detection (CAD). Breast Density: SCATTERED The breast parenchyma shows scattered fibroglandular densities. Breast parenchyma level B. FINDINGS: No suspicious mass, suspicious calcification, or architectural distortion in either breast. IMPRESSION: No evidence of malignancy. BI-RADS CATEGORY: 1 NEGATIVE RECOMMENDED FOLLOW-UP: 12M 12 MONTH FOLLOW-UP PQRS compliance statement: Patient information was entered into a reminder system with a target due date for the next mammogram. Mammography is a sensitive method for finding small breast cancers, but it does not detect them all and is not a substitute for careful clinical examination. A negative mammogram does not negate a clinically suspicious finding and should not result in delay in biopsying a clinically suspicious abnormality. "Our facility is accredited by the [employer] Mammography Program."
== END ==
LOC: MAMMO 13:36
PROVIDERS: ATTEND Internal Medicine
DX: Z12.31 Encounter for screening mammogram for malignant neoplasm of breast (principal)
CPT/HCPCS: 77063; 77067

== ENCOUNTER → 2021-07-30 | Outpatient (CLI) | payer MEDICARE, MEDICAID ==
[~2021-07-30] MED LIST changes: +CHOL5000 PO; -CHOL500051 PO
--- NOTE | 2021-07-30 17:07 | RAD ---
MR#: [id number] Date of Study: 07/30/2021 Ordering Physician: SALOME BERUMEN, Referring Physician: SALOME BERUMEN, Tech: Joel Anthony MBA, RDMS, RVT, RDCS, RTR APPROVED REPORT Patient Location: OUT-PATIENT Laterality:Bilateral Indications Bruit Doppler Spectral Velocity Analysis Right Left pCCA 130/15 cm/spCCA 134/19 cm/s mCCA 91/18 cm/smCCA 103/16 cm/s dCCA 87/21 cm/sdCCA 105/19 cm/s Bulb 75/17 cm/sBulb 91/14 cm/s ECA 94/ cm/sECA 129/ cm/s pICA 83/19 cm/spICA 76/13 cm/s Hailey 82/21 cm/smICA 87/23 cm/s dICA 89/25 cm/sdICA 87/34 cm/s Vert. 45/ cm/sVert. 66/ cm/s Subcl. 220/ cm/sSubcl. 184/ cm/s ICA/CCA 0.68ICA/CCA 0.65 Findings Grayscale images of the bilateral extracranial carotid vessels demonstrates mild diffuse intimal hype rplasia and atherosclerotic plaque. Overall 0 to less than 50% stenosis in the bilateral ICA. Normal ICA to CCA ratios with antegrade ve rtebral velocities. Critical Notification Critical Value: No <Conclusion> 1. No significant bilateral extracranial carotid occlusive disease Signed by : Steven Gore, Electronically Approved : 07/30/2021 17:06:53
--- NOTE | 2021-07-31 15:12 | CARD ---
MR#: [id number] Date of Study: 07/30/2021 Ordering Physician: SALOME BERUMEN, Referring Physician: Jacoby MEDRANO: Roc Jalloh [facility] APPROVED REPORT EXAM: Two-dimensional and M-mode echocardiogram with Doppler and color Doppler. Other Information Quality : AverageHR: 46bpm Rhythm : Bradycardia INDICATION Cardiac Disease: CAD Surgery/Intervention CABG: RISK FACTORS Hypertension Obesity Hyperlipidemia Diabetes 2D DIMENSIONS Left Atrium(2D)4.4 (1.6-4.0cm)IVSd1.0 (0.7-1.1cm) Aortic Root(2D)3.2 (2.0-3.7cm)LVDd5.0 (3.9-5.9cm) LVOT Diameter2.2 (1.8-2.4cm)PWd1.1 (0.7-1.1cm) LVDs3.0 (2.5-4.0cm)FS (%) 39.1 % SV82.4 mlLVEF(%)69.3 (>50%) Aortic Valve AoV Peak Kali.133.2cm/sAoV VTI35.0cm AO Peak GR.7.1mmHgLVOT Peak Kali.116.8cm/s LVOT VTI 26.84cmAO Mean GR.4mmHg FAYE (VMAX)2.28rq2YMK (VTI)2.83cm2 Mitral Valve MV E Olaewkiy304.7cm/sMV DECEL [id number] MV A Evchzhqj11.9cm/sMV [id number] E/A Ratio2.1MVA (PHT)4.79cm2 TDI E/Lateral E'15.5E/Medial E'23.4 Pulmonary Valve PV Peak Ilbquivz267.8cm/sPV Peak Grad.6mmHg Tricuspid Valve TR P. Hufidnca462hj/sTR Peak Gr.36mmHg Pulmonary Vein S1 Vtzzkttt77.0cm/sD2 Bfxokznl29.0cm/s LEFT VENTRICLE The Left Ventricle is mildly dilated. There is normal left ventricular wall thickness. The left ventr icular systolic function is normal and the ejection fraction is within normal range. EF 55% There is normal LV segmental wall motion. Tissue Doppler imaging reveals mild left ventricular diastolic dysfu nction. No left ventricle thrombus noted on this study. There is no ventricular septal defect visuali zed. There is no left ventricular aneurysm. There is no mass noted in the left ventricle. RIGHT VENTRICLE The right ventricle is normal size. There is normal right ventricular wall thickness. The right ventr icular systolic function is normal. ATRIA The left atrium is moderately dilated. The right atrium size is normal. The interatrial septum is int act with no evidence for an atrial septal defect or patent foramen ovale as noted on 2-D or Doppler i maging. AORTIC VALVE The aortic valve is normal in structure and function. Doppler and Color Flow revealed no significant aortic regurgitation. There is no significant aortic valvular stenosis. There is no aortic valvular v egetation. MITRAL VALVE The mitral valve is thickened but opens well. There is no evidence of mitral valve prolapse. There is no mitral valve stenosis. Doppler and Color-flow revealed mild mitral regurgitation. TRICUSPID VALVE The tricuspid valve is normal in structure and function. Doppler and Color Flow revealed trace to mil d tricuspid regurgitation. The PA pressure was estimated at 46 mmHg. There is no tricuspid valve prol apse or vegetation. There is no tricuspid valve stenosis. PULMONIC VALVE Doppler and Color Flow revealed no pulmonic valvular regurgitation. There is no pulmonic valvular marcin nosis. GREAT VESSELS The aortic root is normal in size. The ascending aorta is normal in size. The IVC is normal in size a nd collapses >50% with inspiration. PERICARDIAL EFFUSION There is no pleural effusion. There is no evidence of significant pericardial effusion. Critical Notification Critical Value: No <Conclusion> The left ventricular systolic function is normal and the ejection fraction is within normal range. EF 55% There is normal LV segmental wall motion. Doppler and Color-flow revealed mild mitral regurgitation. Signed by : Steven Gore, Electronically Approved : 07/31/2021 15:11:58
== END ==
LOC: ECHO 12:14
PROVIDERS: ATTEND Internal Medicine Cardiovascular Disease
DX: I08.1 Rheumatic disorders of both mitral and tricuspid valves (principal); I65.23 Occlusion and stenosis of bilateral carotid arteries; I25.709 Atherosclerosis of coronary artery bypass graft(s), unspecified, with unspecified angina pectoris; R09.89 Other specified symptoms and signs involving the circulatory and respiratory systems
CPT/HCPCS: 93306; 93880